=== PATIENT | female | born 1990 | race Caucasian/White ===

== ENCOUNTER 2023-04-07 18:28 | Inpatient (IN) | payer MEDICAID ==
[~2023-04-07] VITALS: Ht 154.9 cm; Wt 80.0 kg
--- NOTE | 2023-04-07 19:02 | NUR ---
PT HAD STAEDY GAIT TO THE TRIAGE ROOM.
[2023-04-07 19:45] VITALS: BP 157/92
[2023-04-07 20:12] LABS: BASO% 0.2 % (0-3); EOS% 0.7 % (0-8); HEMOGLOBIN 14.1 g/dl (12.0-16.0); IMMATURE GRANULOCYTES 0.6 % (0.0-5.0); LYMPH% 13.6 % (15-41); MEAN CELL VOLUME 90.3 fL CALC (80.0-100.0); MEAN CORPUSCULAR HGB 31.1 pG CALC (26.0-32.0); MEAN CORPUSCULAR HGB CONC 34.4 g/dL CAL (32.0-36.0); MONO% 6.2 % (2-13); NEUT# 10.36 thou/uL (2.00-7.15); NEUT% 78.7 % (42-76); RED BLOOD COUNT 4.54 mill/uL (4.20-5.60); RED CELL DISTRI WIDTH 13.7 % (11.5-15.5)
--- NOTE | 2023-04-07 20:20 | NUR ---
PT ALERT AND ORIENTED, CC INSECT BITE, PT STATES THTA YESTERDAY WHILE SHE WAS ASLEEP SOMETHING BIT HER ON HER RIGHT HAND, NOTIFIED, CALL LIGHT WITHIN REACH, FRIEND AT BEDSIDE
[2023-04-07 20:41] LABS: ALBUMIN 4.8 g/dL (3.2-5.0); ALKALINE PHOSPHATASE 184 u/l (38-126); ANION GAP 17 (6-22 (CALC)); BILIRUBIN, TOTAL 1.7 mg/dL (0.02-1.3); BUN 9 mg/dL (7-17); BUN/CREATININE RATIO 19 (12-20 (CALC)); CARBON DIOXIDE 25 mmol/l (22-30); CHLORIDE 99 mmol/l (95-108); CREATININE 0.5 mg/dL (0.5-1.0); GFR FOR AFR.AMER. > 60 ML/MIN (>=60 (CALC)); GFR OTHER RACES > 60 ML/MIN (>=60 (CALC)); POTASSIUM 4.1 mmol/l (3.5-5.1); SGOT/AST 26 u/l (14-36); SODIUM 137 mmol/l (137-146)
--- NOTE | 2023-04-07 21:25 | NUR ---
TEMPORAL TEMP TAKEN 101.6, NOTIFIED
[2023-04-07 21:38] LABS: ETHYL ALCOHOL 0 mg/dl (0-30)
[2023-04-07 22:14] VITALS: BP 131/75
[2023-04-07 22:15] VITALS: BP 130/75
[2023-04-07] MEDS ORDERED: ADVAIR DISK1 INH (22:34)
[2023-04-07] MEDS ORDERED: METFORMIN500 M2 PO (22:34)
--- NOTE | 2023-04-07 22:35 | NUR ---
PT UP TO THEBATHROOM. STEADY GAIT. PT IS ALERT AND OX4. PAIN BETTER 5/10
--- NOTE | 2023-04-07 23:25 | NUR ---
REPORT TO [facility]. PT TRANSPORT TO ROOM 273 BY WHEELCHAIR. PT FEELING BETTER. PT IS ALERT AND OX4
[2023-04-07 23:33] VITALS: BP 126/77
--- NOTE | 2023-04-07 23:57 | NUR ---
PATIENT ARRIVED TO ROOM 273 VIA WHEELCHAIR AT 2330. REPORT RECEIVED FROM KARMEN ER NURSE. PATIENT ALERT AND ORINETED AND ABLE TO MAKE NEEDS KNOWN. STATES THAT SHE IS HAVING COME PAIN BUT DOES NOT WISH TO BE MEDCIATED AT THIS TIME. C/O FEELING HOT. COOL WASH CLOTH PROVIDED AND PLACED ON FOREHEAD. TEMPERATURE WNL AT THIS TIME. ABLE TO AMBULATE INDEPENDENTLY. SKIN INTACT. REDNESS EXTENDS FROM RIGHT INDEX FINGER UP RIGHT ARM. REDENNED AREA MARKED BY ER NURSE TO MONITOR FOR WORSENING. ORIENTED TO ROOM, TV, CALL LIGHT. CALL LIGHT WITHIN REACH.
[2023-04-08 03:57] VITALS: BP 124/81
--- NOTE | 2023-04-08 07:45 | NUR ---
BEDSIDE SHIFT REPORT, PT AWAKE ALERT AND ORIENTED RESTING IN BED, C/O THROBBING PAIN TO RIGHT HAND @ 7/10, HAND IS SWOLEN WITH RED STREAK FROM IINDEX FINGER TO UPPER ARM, IVF INFUSING, CALL DAVEY IN REACH AND BED LOCKED IN LOWEST POSITION.
[2023-04-08 07:49] VITALS: BP 139/82
--- NOTE | 2023-04-08 08:30 | NUR ---
PT CALLED LOBSTER MAN LIGHT STATED SHE NEEDED HELP GOING TO BATHROOM. PT STATED SHE WAS STILL CONNECTED TO IV. RAIL CAR REPAIRER INFORMED PT THAT I WILL UNPLUG IV FROM WALL AND ASSISTS TO BATHROOM. PT ONE ASSIST TO REST ROOM JUST HAVE TO PULL HELP WITH IV POLE.
[2023-04-08 10:43] LABS: URINE BILIRUBIN - DIPSTICK NEGATIVE (NEGATIVE); URINE BLOOD DIPSTICK LARGE (NEGATIVE); URINE COLOR YELLOW; URINE GLUCOSE - DIPSTICK 500 mg/dL (NEGATIVE); URINE KETONE >=80 mg/dL (NEGATIVE); URINE LEUK ESTERASE NEGATIVE (NEGATIVE); URINE PH 5.5 (4.5-8.0); URINE PROTEIN - DIPSTICK NEGATIVE (NEG-TRACE); URINE SPECIFIC GRAVITY 1.025; URINE UROBILINOGEN - DIPSTICK 0.2 E.U./dL (0.2)
[2023-04-08 10:48] LABS: URINE NITRITE - DIPSTICK NEGATIVE (Negative)
[2023-04-08 10:49] LABS: URINE EPITHELIAL CELLS FEW EPI/hpf (0-FEW); URINE RBC 25-50 RBC/hpf (0-5)
--- NOTE | 2023-04-08 12:00 | NUR ---
PT CONTINUES TO EXPERIENCE DISCOMFORT TO RIGHT ARM AND CONCERNED ABOUT LUMP SHE PALPATES IN MD SAKSHI NOTIFIED AND ORDERED ULTRA SOUND, PAIN CONCERNS ADDRESSED.
[2023-04-08] MEDS ORDERED: ADVAIR DISK2 IN (14:55)
--- NOTE | 2023-04-08 16:00 | NUR ---
RESTING IN BED, PAIN CONTROLLED TO TOLERABLE LEVELS WITH ANALGESICS, ALL NEEDS MET/ADDRESSED.
[2023-04-08 16:03] VITALS: BP 151/85
--- NOTE | 2023-04-08 16:18 | NUR ---
S/O: TEENA CHA is a 32 year old Female. Admitted for phlebitis and spider bite. Blood culture is pending. Ht: 61in, Wt: 80kg, DW: 80Kg, SCr: 0.5, CrCl (calc) = 156 ml/min WBC: 13.2, Tmax: 99.9, Tcurrent:97.3 HR:111 beats/min, BP: 151/85 mmHg, RR 19 breaths/min, Sa02: 99% A/P: 1. Start Vancomycin 1gm IV q8h @ 0030,0830,1630. Goal trough is 10-15. 2. Check trough on 04/09/23 at 1600, 30 minutes prior to 1630 dose. 3. Monitor BMP daily while on vanco. 4. Hold 04/10/23 1630 dose if trough > 20. Pharmacy will continue to follow.
--- NOTE | 2023-04-08 17:42 | NUR ---
PT C/O RIGHT HAND EDEMATOUS AND STIFFENED, ARM ELEVATED ON PILLOWS AND COOL COMPRESS APPLIED, WILL CONTINUE TO MONITOR.
[2023-04-08 19:01] VITALS: BP 145/80
--- NOTE | 2023-04-08 20:00 | NUR ---
RECEIVED REPORT FROM NURSE BOBBY, PATIENT RESTING IN BED, RT ARM ELEVATED WITH TWO PILLOW, IV ON LAC G 20 NS @ 125CC/HR INFUSING WELL, PATIENT MEDICATED WITH PRN MORPHINE PRIOR TO SHIFT CHANGE, PATIENT LUNG SOUNDS CLEAR, ACTIVE BOWEL SOUNDS, REDNESS NOTED ON THE RT HAND WITH LESION NOTED DORSAL RTHAND, CALL LIGHT IN REACH.
--- NOTE | 2023-04-09 00:47 | NUR ---
PATIENT C/O PAIN ON RT HAND PS 6/10 PRN ULTRAM GIVEN, PATIENT BACK IN BED, ZOSYN CURRENTLY INFUSING CALL LIGHT IN REACH.
--- NOTE | 2023-04-09 03:31 | NUR ---
PATIENT RESTING IN BED EYES CLOSED, DENIES PAIN AT THIS TIME, CALL LIGHT IN REACH.
[2023-04-09 04:01] VITALS: BP 117/63
[2023-04-09 05:24] LABS: BASO% 0.3 % (0-3); EOS% 1.6 % (0-8); IMMATURE GRANULOCYTES 1.3 % (0.0-5.0); LYMPH% 17.9 % (15-41); MEAN CELL VOLUME 95.2 fL CALC (80.0-100.0); MEAN CORPUSCULAR HGB CONC 32.5 g/dL CAL (32.0-36.0); MONO% 6.1 % (2-13); NEUT# 7.14 thou/uL (2.00-7.15); NEUT% 72.8 % (42-76); RED BLOOD COUNT 3.36 mill/uL (4.20-5.60); RED CELL DISTRI WIDTH 14.1 % (11.5-15.5)
[2023-04-09 05:25] LABS: HEMOGLOBIN 10.4 g/dl (12.0-16.0)
[2023-04-09 05:54] LABS: ALKALINE PHOSPHATASE 133 u/l (38-126); BILIRUBIN, TOTAL 1.3 mg/dL (0.02-1.3); BUN 5 mg/dL (7-17); BUN/CREATININE RATIO 13 (12-20 (CALC)); CHLORIDE 107 mmol/l (95-108); CREATININE 0.4 mg/dL (0.5-1.0); GFR FOR AFR.AMER. > 60 ML/MIN (>=60 (CALC)); GFR OTHER RACES > 60 ML/MIN (>=60 (CALC)); MAGNESIUM 2.2 mg/dL (1.6-2.3); POTASSIUM 3.8 mmol/l (3.5-5.1); SGOT/AST 21 u/l (14-36); SODIUM 135 mmol/l (137-146)
[2023-04-09 05:57] LABS: ALBUMIN 3.2 g/dL (3.2-5.0); ANION GAP 13 (6-22 (CALC)); CARBON DIOXIDE 19 mmol/l (22-30); TOTAL PROTEIN 5.8 g/dL (6.3-8.2)
[2023-04-09 06:26] VITALS: BP 127/76
--- NOTE | 2023-04-09 07:11 | NUR ---
RECIEVED BEDSIDE REPORT,PATIENT REPORTS PAIN, REQUESTING TRAMADOL, PATIENT IS A & O, IV INTACT, WHITEBOARD UPADTED.
--- NOTE | 2023-04-09 10:16 | NUR ---
BOOKED AN INFECTIOUS DISEASE CONSULT WITH DR POP VIA THE [facility] AT 1015 HRS.
--- NOTE | 2023-04-09 12:00 | NUR ---
PATIENT IN BED, MORPHINE GIVEN FOR PAIN, ID CONSULTED, STATED CT WITH CONTRAST LOOKING FOR FLUID POCKETS, PATIENT SAFETY MEASURES IN PLACE.
[2023-04-09 14:45] VITALS: BP 123/68
--- NOTE | 2023-04-09 16:41 | NUR ---
S: TEENA CHA is a 32 F who presents with RUE cellulitis. O: VS: BP 123/68, P 112, RR 20, T 98 Scr=0.4 Vancomycin trough 04/09@1600 = 7 A: Blood culture is pending. Vancomycin trough subtherapeutic. Increase in dose is warranted. P: Patient is on vancomycin 1 g IV q8h. Vancomycin ordered for pharmacy to dose. Increase Vancomycin to 1250 mg IV Q8H. Vancomycin trough is drawn before the dose on 04/11@0000. Vancomycin goal trough is between 10-15 mcg/ml. Pharmacy will follow and or advise on antibiotics use as needed.
[2023-04-09 18:24] VITALS: BP 136/79
--- NOTE | 2023-04-09 18:46 | NUR ---
VANCO TROUGH AT 1600 RESULT OF 7, DOSING ADJUSTED, MIRLAX ORDERED, PATIENT REQUESING AFTER HER SHOWER, NO S/S OF DISTRESS.PATIENT SAFETY MEASURES IN PLACE.
[2023-04-09 19:00] VITALS: BP 136/79
--- NOTE | 2023-04-09 19:15 | NUR ---
RECEIVED REPORT FROM DAYSORFT NURSE. PT IS SITTING UP IN RECLINER WAITING FOR FIANCE TO COME TO ASSIST WITH SHOWER. PT COMPLAINS OF LITTLE PAIN IN RIGHT ARM. PT ACKOWLEGED OF NURSE CHANGE. CALL LIGHT WITHIN REACH AND SAFETY PRECAUTIONS IN PLACE.
--- NOTE | 2023-04-10 00:05 | NUR ---
PT IS IN BED SLEEPING NO NO SIGNS OF PAIN OR DISTRESS. CALL LIGHT WITHIN REACH AND SAFETY PRECAUTIONS IN PLACE.
[2023-04-10 03:37] VITALS: BP 103/53
[2023-04-10 04:00] VITALS: BP 103/53
--- NOTE | 2023-04-10 04:09 | NUR ---
PT IS LYING IN BED SLEEPING. PT SHOWS NO SIGNS OF PAIN OR DISCOMFORT. CALL LIGHT WITHIN REACH AND SAFETY PRECAUTION IN PLACE.
[2023-04-10 05:50] LABS: BASO% 0.2 % (0-3); EOS% 1.4 % (0-8); HEMATOCRIT 29.8 % (37.0-47.0); HEMOGLOBIN 10.2 g/dl (12.0-16.0); IMMATURE GRANULOCYTES 1.9 % (0.0-5.0); LYMPH% 14.7 % (15-41); MEAN CELL VOLUME 92.8 fL CALC (80.0-100.0); MEAN CORPUSCULAR HGB 31.8 pG CALC (26.0-32.0); MEAN CORPUSCULAR HGB CONC 34.2 g/dL CAL (32.0-36.0); MONO% 4.7 % (2-13); NEUT# 6.53 thou/uL (2.00-7.15); NEUT% 77.1 % (42-76); RED BLOOD COUNT 3.21 mill/uL (4.20-5.60); RED CELL DISTRI WIDTH 13.8 % (11.5-15.5)
[2023-04-10 06:14] LABS: ALBUMIN 3.2 g/dL (3.2-5.0); ALKALINE PHOSPHATASE 145 u/l (38-126); BUN 4 mg/dL (7-17); BUN/CREATININE RATIO 11 (12-20 (CALC)); CHLORIDE 106 mmol/l (95-108); CREATININE 0.4 mg/dL (0.5-1.0); GFR FOR AFR.AMER. > 60 ML/MIN (>=60 (CALC)); GFR OTHER RACES > 60 ML/MIN (>=60 (CALC)); MAGNESIUM 2.2 mg/dL (1.6-2.3); POTASSIUM 3.6 mmol/l (3.5-5.1); SGOT/AST 21 u/l (14-36); SODIUM 138 mmol/l (137-146)
[2023-04-10 06:16] LABS: ANION GAP 12 (6-22 (CALC)); BILIRUBIN, TOTAL 0.7 mg/dL (0.02-1.3); CARBON DIOXIDE 24 mmol/l (22-30)
--- NOTE | 2023-04-10 07:30 | NUR ---
RECIEVED BEDSIDE REPORT, PATIENT A & O X 3, IV INTACT, WHITE BOARD UPDATED, NO COMPLAINTS OF PAIN AT THIS TIME, R HAND HAS INCREASE IN SWELLING,REDNESS WITHIN THE LINES, BICEP LUMP NO CHANGE, SAFETY PRECAUTIONS IN PLACE.
[2023-04-10 07:44] VITALS: BP 127/70
--- NOTE | 2023-04-10 12:00 | NUR ---
PATIENT UP TO CHAIR, ICE PACKS PROVIDED THROUGHOUT THE MORNING ALONG WITH COLD WATER, FANS BLOWING ON PATIENT NO COMPLAINTS OF PAIN OR CONCERNS WITH CARE RECIEVED. PATIENT WENT FOR CT OF ARM WITH CIVIL DIV[employer] DEPUTY SHERIFF, EXPLAINED RESULTS, PATIENT SEEMS SATISFIED WITH EXPLANATION. PATIENT STATE"SHE DOESN'T CARE TO TRANSFER THAT IT IS HER MOMS THING" PATIENT SAFETY PRECATIONS IN PLACE.
--- NOTE | 2023-04-10 17:00 | NUR ---
PATIENT RESTING IN BED, APPEARS TO BE SLEEPING, NO S/S OF DISTRESS, PATIENT SAFETY PRECAUTIONS IN PLACE, MOTHER CALLED FOR UPDATE AND STATED SHE WOULD BE HERE IN A HOUR AND A HALF.
[2023-04-10 18:43] VITALS: BP 126/48
[2023-04-10 19:00] VITALS: BP 126/48
--- NOTE | 2023-04-10 20:00 | NUR ---
PATIENT RESTING COMOFRTABLY, DENIES ANY CURRENT PAIN. RIGHT ARM REMAINS SWOLLEN.
--- NOTE | 2023-04-11 00:36 | NUR ---
ANTIBIOTIC HUNG AT THIS TIME.
[2023-04-11 03:19] VITALS: BP 138/66
--- NOTE | 2023-04-11 03:45 | NUR ---
MORPHINE EFFECTIVE FOR PAIN.
[2023-04-11 04:00] VITALS: BP 138/66
[2023-04-11 05:26] LABS: BASO% 0.1 % (0-3); EOS% 1.7 % (0-8); HEMATOCRIT 29.1 % (37.0-47.0); HEMOGLOBIN 9.6 g/dl (12.0-16.0); IMMATURE GRANULOCYTES 3.9 % (0.0-5.0); LYMPH% 18.2 % (15-41); MEAN CELL VOLUME 94.5 fL CALC (80.0-100.0); MEAN CORPUSCULAR HGB 31.2 pG CALC (26.0-32.0); MONO% 5.5 % (2-13); NEUT# 5.13 thou/uL (2.00-7.15); NEUT% 70.6 % (42-76); RED BLOOD COUNT 3.08 mill/uL (4.20-5.60); RED CELL DISTRI WIDTH 14.1 % (11.5-15.5)
[2023-04-11 05:45] LABS: ALBUMIN 3.2 g/dL (3.2-5.0); ALKALINE PHOSPHATASE 151 u/l (38-126); ANION GAP 9 (6-22 (CALC)); BILIRUBIN, TOTAL 0.7 mg/dL (0.02-1.3); BUN 4 mg/dL (7-17); BUN/CREATININE RATIO 12 (12-20 (CALC)); CARBON DIOXIDE 26 mmol/l (22-30); CHLORIDE 104 mmol/l (95-108); CREATININE 0.3 mg/dL (0.5-1.0); GFR FOR AFR.AMER. > 60 ML/MIN (>=60 (CALC)); GFR OTHER RACES > 60 ML/MIN (>=60 (CALC)); POTASSIUM 3.4 mmol/l (3.5-5.1); SGOT/AST 36 u/l (14-36); SODIUM 136 mmol/l (137-146); TOTAL PROTEIN 6.3 g/dL (6.3-8.2)
[2023-04-11 07:06] VITALS: BP 125/65
--- NOTE | 2023-04-11 07:25 | NUR ---
BEDSIDE SHIFT REPORT, PT SLEEPING SOUNDLY, IVF INFUSING, CALL DAVEY IN REACH AND BED LOCKED IN LOWEST POSITION
--- NOTE | 2023-04-11 09:00 | NUR ---
PT AWAKE ALERT AND ORIENTED SITTING UP IN RECLINER, C/O HEADACHE AND PAIN TO RIGHT ARM @ 05/31, ISSUE ADDRESSED, CALL DAVEY IN REACH.
--- NOTE | 2023-04-11 12:00 | NUR ---
PAIN CONCERN ADDRESSED, NO OTHER COMPLAINS.
--- NOTE | 2023-04-11 14:12 | NUR ---
S: TEENA CHA is a 32 F who presents with RUE cellulitis. All medications in patient's chart were reviewed. O: VS: BP 125/65mmhg, P 99bpm, [id number] ,T 97.3F W 80kg, HT 61in, Scr= 0.3, CrCl= ~156 ml/min A: Blood culture is pending/show. Trough is subtherapeutic at 8 mcg/mL. Dose increase warranted. P: Patient is on Zosyn 3.375g IV q6h. Vancomycin ordered for pharmacy to dose. Change Vancomycin to 1750mg IV Q8H. Vancomycin trough is drawn before the dose on 04/12 @ 0800. Vancomycin goal trough is between 10-15 mcg/ml. Pharmacy will follow and or advise on antibiotics use as needed.
[2023-04-11 15:52] VITALS: BP 123/65
[2023-04-11 15:56] VITALS: BP 121/75
--- NOTE | 2023-04-11 16:00 | NUR ---
RELAXING IN RECLINER, DENIES PAIN.
[2023-04-11 20:06] VITALS: BP 138/67
--- NOTE | 2023-04-11 22:26 | NUR ---
RECIEVED BEDSIDE REPOORT, PATIENT UP IN CHAIR, APPEARS MUCH BETTER THAN YESTERDAY, RIGHT ARM BICEP HAS GONE DOWN, PATIENT IS INDEPENDENT IN HER ROOM.PATIENT SAFETY PRECAUTIONS IN PLACE.
--- NOTE | 2023-04-12 | NUR ---
PATIENT REQUESTED PAIN MEDICATION, ANTIBITICS GIVEN NO S/S OF DISTRESS, PATIENT SAFETY MEASURES IN PLACE.
[2023-04-12 04:22] VITALS: BP 139/71
--- NOTE | 2023-04-12 04:26 | NUR ---
PATIENT APPEARS TO BE RESTING, PAIN MEDICATION EFFECTIVE, NO NEEDS AT THIS TIME, PATIENT SAFETY MEASURES IN PLACE.
[2023-04-12 06:26] VITALS: BP 138/70
--- NOTE | 2023-04-12 07:00 | NUR ---
SHIFT CHANGE REPORT, PT AWAKE ALERT AND ORIENTED SITTING UP IN BED, IVF INFUSING, CALL DAVEY IN REACH AND BED LOCKED IN LOWEST POSITION. SWELLING TO RIGHT ARM IS MUCH INPROVED AND RED STREAK ORIGINALLY SEEN EXTENDING FROM RIGH INDEX FINGER TO UPPER ARM HAS BEEN RESOVED.
--- NOTE | 2023-04-12 09:26 | NUR ---
S: TEENA CHA is a 32 F who presents with insect bite. She has a history of diabetic and asthma. All medications in patient's chart were reviewed. O: VS: BP 138/70mmHg, P 93BPM, RR 20bpm,T 96.7F W 80kg, HT 61in, Scr= 0.3L, CrCl= 171.6ml/min A: Blood culture no growth in 48 hours. P: Patient is on Zosyn 3.375gm IV Q6H. Vancomycin ordered for pharmacy to dose. Start Vancomycin 1,750mg IV Q12H. Vancomycin trough is drawn before the 4th dose on 04/12/2023 @ 1930. Vancomycin goal trough is between 10-15 mcg/ml. Pharmacy will follow and or advise on antibiotics use as needed.
[2023-04-12] MEDS ORDERED: ZYVOX600 MG PO (11:22)
[2023-04-12] MEDS ORDERED: TRAMADOL HCL50 MG PO (11:23)
--- NOTE | 2023-04-12 11:43 | NUR ---
Pt ambulated approx. 1160 feet without assistance. Breathing effort nonlabored and in a regular rhythm. No distress noted while walking. Pt taken to room and sat back in chair.
--- NOTE | 2023-04-12 13:49 | NUR ---
Discharge instructions given. Patient verbalizes understanding of same. Discharged in fair condition via Ambulatory to Home with *Other. All belongings sent with pt.
== END 2023-04-12 13:50 | disposition home or self-care (01) | DRG 918 ==
LOC: ED 18:28 → ED-I 22:00 → ED 22:50 → MS2 22:51
PROVIDERS: Emergency Medicine; Internal Medicine; Nurse Practitioner Family; ADMIT Internal Medicine; ATTEND Internal Medicine
DX: T63.301A Toxic effect of unspecified spider venom, accidental (unintentional), initial encounter (principal); L03.113 Cellulitis of right upper limb; I80.8 Phlebitis and thrombophlebitis of other sites; E11.9 Type 2 diabetes mellitus without complications; J45.909 Unspecified asthma, uncomplicated; E66.9 Obesity, unspecified; Z79.84 Long term (current) use of oral hypoglycemic drugs; Z20.822 Contact with and (suspected) exposure to COVID-19
CPT/HCPCS: J1650; J3370; Q9967